=== PATIENT | female | born 1965 | race Caucasian/White ===

== ENCOUNTER 2021-05-21 10:21 | Outpatient (CLI) | payer OTHER, SELFPAY ==
--- NOTE | ~2021-05-21 | MM_ITS ---
EXAMINATION: MM screening cherelle BI w ermias HISTORY: Screening mammogram TECHNIQUE: Craniocaudal and mediolateral oblique 3-D tomosynthesis images were obtained and synthetic 2-D images were generated. CAD analysis was submitted and interpreted. COMPARISON: 12/16/2019 bilateral digital screening mammogram BREAST PARENCHYMAL COMPOSITION: There are scattered areas of fibroglandular density. FINDINGS: Focal microcalcifications are noted posteriorly in the mid inner right breast. Diagnostic r ight mammogram with magnification views is recommended. Otherwise there is no evidence of suspicious mass, calcification, or architectural distortion to sugg est malignancy in either breast. There has been no other suspicious interval change. IMPRESSION: 1. Microcalcifications in posterior mid inner right breast 2. Diagnostic right mammogram with magnification views is recommended BI-RADS Category 0: Incomplete: Needs additional imaging evaluation. Reviewed, dictated and finalized at location A.
== END 2021-05-21 10:22 | disposition home or self-care (01) ==
LOC: ANHIMG 10:24
PROVIDERS: Visit Provider Obstetrics & Gynecology
DX: Z12.31 Encounter for screening mammogram for malignant neoplasm of breast (principal); R92.8 Other abnormal and inconclusive findings on diagnostic imaging of breast
CPT/HCPCS: 77063; 77067

== ENCOUNTER 2021-06-18 12:43 | Outpatient (CLI) | payer OTHER, SELFPAY ==
--- NOTE | ~2021-06-18 | MM_ITS ---
EXAMINATION: MM diagnostic mammo unilat RT HISTORY: Follow-up right breast calcifications TECHNIQUE: Additional 3-D tomosynthesis images of the right breast were performed and synthetic 2-D i mages were generated. CAD analysis was submitted and interpreted. COMPARISON: 05/21/2021 BREAST PARENCHYMAL COMPOSITION: Breast composed of scattered areas of fibroglandular density. FINDINGS: There is a cluster of calcifications in the lower inner quadrant of the right breast which layer on the medial lateral view, consistent with benign milk of calcium. No suspicious calcification s, architectural distortion or masses identified to suggest malignancy. IMPRESSION: 1. Benign right breast calcifications. No evidence for malignancy. 2. Routine yearly screening mammogram and regular clinical breast examination are recommended. BI-RADS Category 2: Benign finding(s). Reviewed, dictated and finalized at location A. IMPRESSION: 1. Benign right breast calcifications. No evidence for malignancy. 2. Routine yearly screening mammogram and regular clinical breast examination a re recommended. BI-RADS Category 2: Benign finding(s).
== END 2021-06-18 12:44 | disposition home or self-care (01) ==
PROVIDERS: Visit Provider Obstetrics & Gynecology
DX: R92.0 Mammographic microcalcification found on diagnostic imaging of breast (principal)
CPT/HCPCS: 77065

== ENCOUNTER 2025-06-21 10:29 | Emergency (ER) | payer OTHER, SELFPAY ==
--- NOTE | ~2025-06-21 | XR_ITS ---
EXAM/ PROCEDURE: XR lumbar spine 2-3V - 06/21/2025 10:55 CDT HISTORY: 60 years old Female with fall 1 month ago lumbar pain COMPARISON: None available TECHNIQUE: Three view(s) FINDINGS/ IMPRESSION: There are no fractures or dislocations.Intervertebral disc spaces are within normal limits. Reviewed, dictated and finalized at location A.
--- NOTE | ~2025-06-21 | XR_ITS ---
EXAM/ PROCEDURE: XR sacrum coccyx min 2V - 06/21/2025 10:55 CDT HISTORY: 60 years old Female with fall 1 month ago, low back/sacral pain COMPARISON: None available TECHNIQUE: Two view(s) FINDINGS/ IMPRESSION: There are no fractures or dislocations.Joint spaces are within normal limits. Reviewed, dictated and finalized at location A.
--- OUTSIDE RECORDS SUMMARY | 2025-06-21 10:31 | XMS_ITS | Encounter Summary ---
Author Organization [facility] Address [address] [place] [address] Care Team Providers Care Guest Relations Executive Name Role Phone Wang Hurd MD Primary Care Provider [phone] Encounter Details Date Type Department Care Team (Latest Contact Info) Description 09/03/2002 Outpatient 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 Gender Identity Female 08/30/2024 8:22 AM CDT Sexual Orientation Not on file documented as of this encounter Plan of Treatment Upcoming Encounters Date Type Department Care Team (Late st Contact Info) Description 06/26/2025 9:45 AM CDT Initial consult [facility] - [address] - Ophthalmology [address] [facility] [address] [place] [address] Polina Larose MD [address] [facility] [address] [place] [address] 10/30/2025 10:00 AM FINGERNAIL SCULPTURER Office Visit [facility] Neurology [address] [facility] [address] [place] [address] Norma Hernandez FNP [address] [facility] [address] [place] [address] 05/01/2026 10:00 AM CDT Office Visit [facility] Neurology [address] [facility] [address] [place] [address] Ke Whalen MD [address] [facility] [address] [place] [address] documented as of this encounter Visit Diagnoses Diagnosis Other screening mammogram- Primary documented in this encounter Care Teams Guest Relations Executive Relationship Specialty Start Date End Date Wang Hurd MD [address] [place] [address] PCP - General Family Practice 12/27/16 documented as of this encounter
--- OUTSIDE RECORDS SUMMARY | 2025-06-21 10:31 | XMS_ITS | Clinical Summary ---
Author Organization [facility] Address [address] [place] [id number] Care Team Providers Care Iron Carrier Name Role Phone Wang Hurd MD Primary Care Provider Social History Tobacco Use Types Packs/Day Years Used Date Smoking Tobacco: Never Assessed Comments Unknown Sex and Gender Information Value Date Recorded Sex Assigned at Not on file Legal Sex Female 5:33 PM CDT Gender Identity Not on file Sexual Orientation Not on file Last Filed Vital Signs Vital Sign Reading Time Taken Comments Blood Pressure 119/79 06/01/2016 9:31 AM CDT Pulse 79 06/01/2016 9:31 AM CDT Temperature - - Respiratory Rate - - Oxygen Saturation - - Inhaled Oxygen Concentration - - Weight 65.8 kg (145 lb) 04/12/2016 9:07 AM CDT Height 165.1 cm (5' 5) 04/12/2016 9:07 AM CDT Body Mass Index 24.13 04/12/2016 9:07 AM CDT Plan of Treatment Health Maintenance Due Date Last Done Comments Cervical Cancer Screening Pa p Smear (Age 30 to 64) Every 3 Years 1963 Colorectal Cancer Screening Colonoscopy (10 Years) 1963 Annual Physical 1966 Hepatitis C 1981 DTaP, Tdap and Td Vaccines ( 1 - Tdap) 1982 Cervical Cancer Screening Pa p with HPV Testing (Age 30 to 64) Every 5 Years 1993 Cervical Cancer Screening with HPV 1993 Mammogram Screening 2003 Pneumococcal Vaccine: 50+ Ye ars (1 of 1 - PCV) 2013 Zoster Vaccines (1 of 2) 2013 COVID-19 Vaccine (2023-2 5 season) 2024 RSV Immunization or 60+ Years (1 - 1-dose 75+ series) 2038 Meningococcal B Vaccine Aged Out No l onger eligible based on patient's age to complete this topic Meningococcal Vaccine Aged Out No hakeem alexia eligible based on patient's age to complete this topic RSV Immunizations Under 20 Months Aged Out No longer eligible based on patient's age to complete this topic Care Teams Iron Carrier Relationship Specialty Start Date End Date Wang Hurd MD [address] [place], [place] [id number] PCP - General 06/07/13
--- OUTSIDE RECORDS SUMMARY | 2025-06-21 10:31 | XMS_ITS | Clinical Summary ---
Author Organization [facility] Address [address] [facility] [place] [address] Phone Care Team Providers Care Master Esthetician Name Role Phone Wang Hurd MD Primary Care Provider [phone] Allergies Active Allergy Reactions Criticality Noted Date Comments Clindamycin Nausea and Vomiting Low 12/27/2016 Cortisone Unknown 05/01/2021 Will interact with hormone replacement Vestibular migraine Vestibular migraine [id number] Active 2021-12-24 00:00:00 Medications spironolactone (ALDACTONE) 100 mg tablet Take 150 mg by mouth daily. Active levothyroxine 112 mcg tablet Take 112 mcg by mouth daily in the morning. Active liothyronine (CYTOMEL) 25 mcg Tablet Take 25 mcg by mouth daily. Active CHOLECALCIFERO L, VITAMIN D3, (VITAMIN D3 ORAL) Take by mouth. Activ e coenzyme Q10 (CO Q-10) 100 mg Capsule Take 100 mg by mouth daily. Active OTHER 12.5 mg Iodoral Supplement . Active OTHER 250 mg Dim Supplement . Active OTHER 900 mg 2 times daily NAC Supplement . Active OTHER L-Aginine/Lornithi ne 250/500 . Active OTHER Nifedipine ointment 0.2% Use a small amount topically to perianal area every 4 hours. Disp 35 grams RF 2. 35 Each 2 7 Active Additional Information Patient not taking.Reported on 04/30/2025 lidocaine (XYLOCAINE) 5 % Ointment Apply to affected area see administration instructions 1/2 inch topically to anal or affected area BID. 30 Gram 2 Active Additional Information Patient not taking.Reported on 04/30/2025 VITAMIN B COMPLEX ORAL Take 1 Capsule by mouth daily. 07/27/202 1 Active diclofenac sodium (VOLTAREN) 1 % gel Apply 4 Grams to affected area every third day. Active TURMERIC ORAL Take 1,000 mg by mouth every 12 hours. 1 Active Tretinoin 0.05 % Gel Apply to affected area every third day. 3 Active ascorbic acid, vitamin C, (Vitamin C) 500 mg tablet Take 500 mg by mouth daily. Active cyclobenzaprin e (FLEXERIL) 5 mg Tablet Take 5 mg by mouth 3 times daily as needed. Active fexofenadine (Lory Allergy) 180 mg tablet Take 180 mg by mouth daily. 1 Active eletriptan (RELPAX) 40 mg Tablet Take 40 mg by mouth one time as needed. 3 Active Zinc Sulfate, Bulk, 100 % Powder Take by mouth. 3 Active ondansetron (ZOFRAN ODT) 8 mg Tablet, Rapid Dissolve Take 8 mg by mouth every 8 hours as needed. 1 Active PROGESTERONE MICRONIZED ORAL Take by mouth. COMPOUNDED 150 Active prochlorperazi ne maleate (COMPAZINE) 10 mg tablet Take 10 mg by mouth. 2 Active MAGNESIUM ORAL Take by mouth. COGNIMAG - MAGNESIUM W/ L-THREONATE Active ondansetron (ZOFRAN ODT) 8 mg Tablet, Rapid Dissolve Dissolve 1 tablet on top of tongue then swallow with saliva every 8 hours as needed for nausea or vomiting 8 Tablet 3 5 Active prochlorperazi ne maleate (COMPAZINE) 10 mg tablet Take 1 Tablet (10 mg) by mouth every 6 hours as needed for Nausea/Emesis. 20 Tablet 3 5 Active Active Problems No known active problems Encounters Date Type Department Care Team Description 05/21/2025 External Device Data STL ABSTRACTION Provider, Abstract 04/30/2025 10:00 AM CDT Office Visit [facility] Neurology [address] [facility] [address] [place] [address] Ke Whalen MD Migraine without aura and without status migrainosus, not intractable (Primary Dx); Migraine with aura and without status migrainosus, not intractable 04/23/2025 External Device Data STL ABSTRACTION Provider, Abstract 04/18/2025 External Device Data STL ABSTRACTION Provider, Abstract 04/17/2025 External Device Data STL ABSTRACTION Provider, Abstract from Last 3 Months Social History Tobacco Use Types Packs/Day Years Used Date Smoking Tobacco: Never Comments No Sex and Gender Information Value Date Recorded Sex Assigned at Female 08/30/2024 8:22 AM CDT 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 Gender Identity Female 08/30/2024 8:22 AM CDT Sexual Orientation Not on file Last Filed Vital Signs Vital Sign Reading Time Taken Comments Blood Pressure 110/68 04/30/2025 9:51 AM CDT Pulse 76 04/30/2025 9:51 AM CDT Temperature - - Respiratory Rate - - Oxygen Saturation 98% 04/30/2025 9:51 AM CDT Inhaled Oxygen Concentration - - Weight 63 kg (139 lb) 04/30/2025 9:51 AM CDT Height 165.1 cm (5' 5) 04/30/2025 9:51 AM CDT Body Mass Index 23.13 04/30/2025 9:51 AM CDT Plan of Treatment Upcoming Encounters Date Type Department Care Team (Late st Contact Info) Description 06/26/2025 9:45 AM CDT Initial consult [facility] - [facility] - Ophthalmology [address] [facility] [address] [place] [address] Polina Larose MD [address] [facility] [address] [place] [address] 10/30/2025 10: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 Office Visit [facility] Neurology [address] [facility] [address] [place] [address] Norma Hernandez, AGUILA [address] [facility] [address] [place] [address] 05/01/2026 10:00 AM CDT Office Visit [facility] Neurology [address] [facility] [address] [place] [address] Ke Whalen MD [address] [place] [address] [place] [address] Health Maintenance Due Date Last Done Comments DTAP/TDAP/TD VACCINES (1 - Tdap) 1982 COLORECTAL SCREENING 2008 Colorectal Cancer Screening 2008 FIT-DNA Q 3 years 2008 FIT/FOBT Q 1 year 2008 Flex Sig/CT Colonography Q 5 years 2008 ZOSTER VACCINE (1 of 2) 2013 PAP SMEAR 04/22/2024 04/22/2021, 03/29, 03/28/2020 COVID-19 Vaccine (2023-2 5 season) 2024 03/03/2021, 02/10/2021 INFLUENZA VACCINE (#1) 2025 , 11/10/2021, 09/15/2020, Additional history exists BREAST CANCER SCREENING 03/08/2026 03/08/20 25, 02/15/2024, 02/15/2024, Additional history exists CERVICAL CANCER SCREENING 04/22/2026 HPV/Cotest (21-29) 04/22/2026 04/22/2021, 03/28/2020 HPV/Cotest (30-65) 04/22/2026 04/22/2021, 03/28/2020 RSV VACCINE (60+ or ) (1 - 1-dose 75+ series) 2038 Procedures Procedure Name Priority Date/Time Associated Diagnosis Comments MAMMO 3D DAVIN SCREEN BILAT W OR WO CAD Routine 03/08/2025 1:16 PM CDT Visit for screening mammogram CERV/VAG CYTO AGE BASED SCREEN PAP Routine 04/22/2021 3:22 PM CDT Smear, vaginal, as part of routine gynecological examination from Last 3 Months or Most Recently Relevant to Health Maintenance Results * MAMMO 3D DAVIN SCREEN BILAT W OR WO CAD (03/08/2025 1:16 PM CDT) Anatomical Region Laterality Modality Breast Bilateral Mammography 03/08/2025 1:16 PM CDT Impressions 03/08/2025 2:06 PM CDT IMPRESSION: 1. No concerning findings. OVERALL FINAL ASSESSMENT: BI-RADS CATEGORY 1 - Negative. RECOMMENDATIONS: 1. Recommend annual mammography. DICTATION LOCATION: [facility] 03/08/2025 2:06 PM CDT BILATERAL SCREENING DIGITAL MAMMOGRAM WITH 3D TOMOSYNTHESIS AND CAD DATE: 03/08/2025 1:16 PM HISTORY: Routine yearly screening exam. TECHNIQUE: Low-dose full-field digital breast tomosynthesis examination was performed of both breasts with 2D and 3D acquisitions. CAD was utilized. COMPARISON: November 2019 through January 2024 BREAST COMPOSITION: There are scattered areas of fibroglandular density. FINDINGS: No concerning dominant masses, suspicious calcifications, parenchymal asymmetries or areas of architectural distortion are identified in either breast. us Wang Hurd MD MAMMO ORDERABLES Final Resul t * CERV/VAG CYTO AGE BASED SCREEN PAP (04/22/2021 3:22 PM CDT) COMMENT (PAP): SEE COMMENT 2:02 PM CDT [facility] Comment: This order for age-based cervical cancer and STI screening follows ACOG guidelines(PB 168, 140, IXN708). See individual assays for performing site location. CLINICAL INFORMATION Information not provided 04/28/2021 2:02 PM CDT [facility] LAST MENSTRUAL PERIOD UNK 04/28/2021 2:02 PM CDT [facility] PREV PAP: INFORMATION NOT PROVIDED 04/28/2021 2:02 PM CDT [facility] PREV BX: INFORMATION NOT PROVIDED 04/28/2021 2:02 PM CDT [facility] SOURCE Endocervix 04/28/2021 2:02 PM CDT [facility] ADEQUACY: SEE COMMENT 04/28/2021 2:02 PM CDT [facility] Comment: Satisfactory for evaluation. Endocervical/transformation zone component absent. Age and/or menstrual status not provided PAP INTERP Negative for intraepithelial lesion or malignancy. 04/28/2021 2:02 PM CDT [facility] COMMENT This Pap test has been evaluated with computer assisted technology. 04/28/2021 2:02 PM CDT [facility] BRANCH MANAGER TRAINEE: SEE COMMENT 2020 2:02 PM CDT [facility] Comment: YQ, CT(ASCP) CT screening location: [place] [address] [address] [place] [address] EXPLANATORY NOTE SEE COMMENT 2:02 PM CDT [facility] Comment: EXPLANATORY NOTE: The Pap is a screening test for cervical cancer. It is not a diagnostic test and is subject to false negative and false positive results. It is most reliable when a satisfactory sample, regularly obtained, is submitted with relevant clinical findings and history, and when the Pap result is evaluated along with historic and current clinical information. HPV E6/E7 Not Detected Not Detected 04/28/2021 2:02 PM CDT [facility] Comment: Methodology: Transportation Security Officer-Mediated Amplification This assay detects E6/E7 viral messenger RNA (mRNA) from 14 high-risk HPV types (16,18,31,33,35,39,45,51,52,56,58,59,66,68). The analytical performance characteristics of this assay have been determined by [facility]. The modifications have not been cleared or approved by the FDA. This assay has been validated pursuant to the CLIA regulations and is used for clinical purposes. For additional information, please refer to http://education.My Point...Exactly.Inspirato/faq/GVY732l7 (This link if provided for information/ educational purposes only.) Genital SWAB OF ENDOCERVIX / Unknown Collection / Unknown 04/22/2021 3:22 PM CDT 04/22/2021 10:00 PM CDT Narrative [facility] - 04/28/2021 2:02 PM CDT Performing Organization Information: Site ID: [id number] [facility]: [facility] Address: [address] [place], [place] [address] Director: Kevin Gifford D.O., MPH Site ID: [id number] Name: [facility] Address: [address] [address] [address] Director: Liliana Alatorre us Raiza Cárdenas MD PATHOLOGY/CYTOLOGY ORDERABLE S Final Result [facility] [phone] from Last 3 Months or Most Recently Relevant to Health Maintenance Insurance [facility] Care Teams Master Esthetician Relationship Specialty Start Date End Date Wang Hurd MD [address] [place] [phone] PCP - General Family Practice 12/27/16
--- OUTSIDE RECORDS SUMMARY | 2025-06-21 10:31 | XMS_ITS ---
Author Organization [facility] Address [address] [place], [place] [id number] Care Team Providers Care Carpenter Cradle And Dolly Name Role Phone ERIC LÓPEZ Primary Care Provider UnavailMichael Patton Unavailable [phone] Kelsey Bravo Unavailable [phone] ALLERGIES Allergen (clinical drug ingredient) Drug/Non Drug Allergy documented on EMR Reaction Allergy Type Onset Date Status Cortizone injections (uncoded) vaginal bleeding, Cramping Allergy Active REASON FOR VISIT f/u MEDICATIONS Medication SIG (Take, Route, Frequency, Duration) Notes Start Date End Date Status DIM 200mg 1 cap as directed Ac tive L-Arginine 500 mg 1 cap(s) orally 2 ti mes a day Active NAC 600 mg 1 cap(s) orally once a day Active Tumeric orally Active cyclobenzaprine 5 mg 1 tab(s) orally nig htly as needed Active Berberine 500mg bid PRN Acti ve L-Ornithine Gooding Hydrochloride Active Cytomel 25 mcg 1 tab(s) orally once a day Active Synthroid 100 mcg (0.1 mg) 1 tab(s) oral ly once a day Active spironolactone 100 mg 1 tab(s) orally on ce a day Active Krill Oil 500 mg as directed A ctive Lory 24 Hour Allergy 180 mg 1 tab(s) orally once a day Active multivitamin Multiple Vitamins 1 cap(s) orally once a day Active Zinc orally Active Vitamin C 500 mg 1 tab(s) orally once a day Active Vitamin D3 5000 intl units as directed o rally once a day Active etodolac 300 mg 1 cap(s) orally 2 ti mes a day 12/06/2024 Active TraMADol Hydrochloride 50 mg 1 tab(s) or ally m47.22 2 times a day as needed 12/06/2024 Active VITAL SIGNS BMI 21.95 kg/m2 04/30/2025 Blood pressure systolic 111 mm Hg 04/30/20 25 Blood pressure diastolic 69 mm Hg 025 Heart Rate 80 /min 04/30/2025 Height 66 in 04/30/2025 Weight 136 lbs 04/30/2025 Encounters Encounter Location Date [facility] [address] [place], [place] [id number] 04/30/2025 Kelsey Bravo Primary generalized (osteo)arthritis M15.0 ; Pain in right hand M79.641 ; Pain in left hand M79.642 ; Other oil heaterman (current) drug therapy Z79.899 ; Cervicalgia M54.2 ; Meagan's thyroiditis E06.3 ; Dizziness R42 ; Nausea R11.0 and 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 Continue Voltaren gel, and turmeric for OA. Use it more for her hnad pain. Lab order given to evaluate disease process and to monitor any adverse effects of medications. 04/30/2025 Pain in right hand (ICD-10 - M79.641) Contineu Etodolac 300mg BID as needed for worsening right CMC pain. Continue Voltaren gel, and turmeric for OA. Use it more for her hnad pain. Lab order given to evaluate disease process and to monitor any adverse effects of medications. 04/30/2025 Pain in left hand (ICD-10 - M79.642) Contineu Etodolac 300mg BID as needed for worsening right CMC pain. Continue Voltaren gel, and turmeric for OA. Use it more for her hnad pain. Lab order given to evaluate disease process and to monitor any adverse effects of medications. 04/30/2025 Other oil heaterman (current) drug therapy (ICD-10 - Z79.899) Contineu Etodolac 300mg BID as needed for worsening right CMC pain. Continue Voltaren gel, and turmeric for OA. Use it more for her hnad pain. Lab order given to evaluate disease process and to monitor any adverse effects of medications. 04/30/2025 Cervicalgia (ICD-10 - M54.2) Contineu Etodolac 300mg BID as needed for worsening right CMC pain. Continue Voltaren gel, and turmeric for OA. Use it more for her hnad pain. Lab order given to evaluate disease process and to monitor any adverse effects of medications. 04/30/2025 Meagan's thyroiditis (ICD-10 - E06.3) Contineu Etodolac 300mg BID as needed for worsening right CMC pain. Continue Voltaren gel, and turmeric for OA. Use it more for her hnad pain. Lab order given to evaluate disease process and to monitor any adverse effects of medications. 04/30/2025 Dizziness (ICD-10 - R42) Contineu Etodolac 300mg BID as needed for worsening right CMC pain. Continue Voltaren gel, and turmeric for OA. Use it more for her hnad pain. Lab order given to evaluate disease process and to monitor any adverse effects of medications. 04/30/2025 Nausea (ICD-10 - R11.0) Contineu Etodolac 300mg BID as needed for worsening right CMC pain. Continue Voltaren gel, and turmeric for OA. Use it more for her hnad pain. Lab order given to evaluate disease process and to monitor any adverse effects of medications. 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 Continue Voltaren gel, and turmeric for OA. Use it more for her hnad pain. Lab order given to evaluate disease process and to monitor any adverse effects of medications. PLAN OF TREATMENT Medication Medication Name Sig Start Date Stop Date Notes DIM 200mg 1 cap as directed L-Arginine 500 mg 1 cap(s) orally 2 ti mes a day NAC 600 mg 1 cap(s) orally once a day Tumeric orally cyclobenzaprine 5 mg 1 tab(s) orally nig htly as needed Berberine 500mg bid PRN L-Ornithine Gooding Hydrochloride Cytomel 25 mcg 1 tab(s) orally once a day Synthroid 100 mcg (0.1 mg) 1 tab(s) orally once a day spironolactone 100 mg 1 tab(s) orally once a day Krill Oil 500 mg as directed Lory 24 Hour Allergy 180 mg 1 tab(s) orally once a day multivitamin Multiple Vitamins 1 cap(s) orally once a day Zinc orally Vitamin C 500 mg 1 tab(s) orally once a day Vitamin D3 5000 intl units as directed o rally once a day etodolac 300 mg 1 cap(s) orally 2 ti mes a day 12/06/2024 TraMADol Hydrochloride 50 mg 1 tab(s) or ally m47.22 2 times a day as needed 12/06/2024 Pending Test Test Name Order Date Uric Acid, Serum 04/30/2025 AST (SGOT) 04/30/2025 Creatinine, Serum 04/30/2025 ALT (SGPT) 04/30/2025 CBC With Differential/Platelet Sed Rate - Westergren 04/30/2025 Rheumatoid Arthritis Factor 04/30/2025 C-Reactive Protein, Quant 04/30/2025 CCP IgG Antibodies 04/30/2025 BESSIE Panel (BESSIE+JUANI+Scl 70+SjoSSA+SjoSSB) 04/30/2025 DS DNA ANTIBODY, CRITHIDIA, IFA W/REFL Q UEST 04/30/2025 Next Appt Details Follow Up: 6 Months, Reason: Provider Name:Kelseyrodrigo Bravo, 10/30/2025 11:10:00 AM, [address] [facility] [address], [place], [place], [id number], Progress Notes * Examination Category Sub-Category Detail Notes Category Not es General Constitutional: No acute distress , No ac mack distress HEENT: PERRLA, Neck supple, Normal sclerae and conjunctivae , PERRLA, Neck supple, Normal sclerae and conjunctivae Cardiovascular RSR, No murmurs, No rub, Normal peripheral pulsations, No edema , RSR, No murmurs, No rub, Normal peripheral pulsations, No edema Lungs: clear to ausculation , clear to ausculation Abdomen: soft, no organomegal y or masses , soft, no organomegaly or masses /Rectal: not done , not done Skin: No cutaneous lesions . No subcutaneous nodules noted in the 4 extremities , No cutaneous lesions. No subcutaneous nodules noted in the 4 extremities Neurological: No focal neurologica l findings , No focal neurological findings Heme/Lymphatic: No cervical, axillar y, or inguinal adenopathy , No cervical, axillary, or inguinal adenopathy Psych: Alert, oriented x 3, Normal affect , Alert, oriented x 3, Normal affect Musculoskeletal: Normal strength. No muscle atrophy , Normal strength. No muscle atrophy Joint Exam Shoulders right, 1+ swelling , right, 1+ swelling Elbows No swelling. No tend erness. NROM., No instability or deformity. , No swelling. No tenderness. NROM., No instability or deformity. Wrists No swelling. No tend erness. NROM., No instability or deformity. , No swelling. No tenderness. NROM., No instability or deformity. MCP1 bilateral, 1+ tender ness , bilateral, 1+ tenderness Hips No tenderness, NROM. , No instability or deformity. , No tenderness, NROM., No instability or deformity. Knees No swelling, no tend erness, NROM., No instability or deformity. , No swelling, no tenderness, NROM., No instability or deformity. Ankles No swelling, no tend erness, NROM., No instability or deformity. , No swelling, no tenderness, NROM., No instability or deformity. All IPs No swelling, no tend erness, NROM, no deformity unless noted below. , No swelling, no tenderness, NROM, no deformity unless noted below. All MCPs No swelling, no tend erness, no deformity unless noted below. , No swelling, no tenderness, no deformity unless noted below. All PIPs No swelling, no tend erness, no deformity unless noted below. , No swelling, no tenderness, no deformity unless noted below. All DIPs No swelling, no tend erness, no deformity unless noted below. , No swelling, no tenderness, no deformity unless noted below. All MTPs No swelling, no tend erness, NROM, no deformity unless noted below. , No swelling, no tenderness, NROM, no deformity unless noted below. History and Physical Notes * HPI (History of Present Illness) Category Sub-Category Detail Notes Category Not es Rheumatology Joint swelling She has been going to PT for her hands. She took Etodolac instead and it helped. SHe only takes it as needed. She has not been on it since March. She denies any side effects. Meloxicam caused nausea and tinnitus. She has been doing ok without it. She has been having worsening pain in her right CMC joint. She has bony changes in her right CMC. Turmeric is helping some. morning stiffness myalgias muscle weakness rash Psoriasis IBS NSAID's on meloxicam daily , on meloxicam daily Physical Examination Category Sub-Category Detail Notes Section Note s MDHAQ Summary Function (0-10):: 0.7 Pain (0-10):: 6.5 Patient Global Assessment of Disease Activity (0 -10):: 6.5 RAPID3 Score (0-30):: 13.7 Physician Global Assessment of Disease Activity (0-10):: 3 Prognosis Very Good w/tx Erosive Damage No
--- OUTSIDE RECORDS SUMMARY | 2025-06-21 10:31 | XMS_ITS | Encounter Summary ---
Author Organization [facility] Address [address] [place] [address] Care Team Providers Care Case Consultant Name Role Phone Wang Hurd MD Primary Care Provider [phone] Encounter Details Date Type Department Care Team (Latest Contact Info) Description 06/27/2006 Outpatient Historical [facility] Lobo Oseguera MD [address] [facility] [address] [place] [address] Other Screening Mammogram (Primary Dx) Social History Tobacco Use Types Packs/Day Years Used Date Smoking Tobacco: Never Assessed Comments Unknown Sex and Gender Information Value Date Recorded Sex Assigned at Female 08/30/2024 8:22 AM CDT Legal Sex Female 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 Gender Identity Female 08/30/2024 8:22 AM CDT Sexual Orientation Not on file documented as of this encounter Plan of Treatment Upcoming Encounters Date Type Department Care Team (Late st Contact Info) Description 06/26/2025 9:45 AM CDT Initial consult [facility] - Ophthalmology [address] [facility] [address] [place] [address] Polina Larose MD [address] [facility] [address] [place] [address] 10/30/2025 10:00 AM OVAL OR CIRCULAR GLASS CUTTER Office Visit [facility] [id number] [facility] [address] [place] [address] Norma Hernandez FNP [address] [facility] [address] [place] [address] 05/01/2026 10:00 AM CDT Office Visit [facility] [address] [facility] [address] [place] [address] Ke Whalen MD [address] [facility] [address] [place] [address] documented as of this encounter Visit Diagnoses Diagnosis Other screening mammogram- Primary documented in this encounter Care Teams Case Consultant Relationship Specialty Start Date End Date Wang Hurd MD [address] [place] [phone] PCP - General Family Practice 12/27/16 documented as of this encounter
--- OUTSIDE RECORDS SUMMARY | 2025-06-21 10:32 | XMS_ITS | Encounter Summary ---
Author Organization [facility] Address [address] [place] [address] Care Team Providers Care Boots And Shoes Supervisor Name Role Phone Wang Hurd MD Primary Care Provider Encounter Details Date Type Department Care Team (Late st Contact Info) Description 04/24/2025 Lab Requisition [facility] - [facility]ermPath Lab [address] [facility] [place] [address] Yaquelin Estes DO [address] [facility] [address] [place] [address] Social History Tobacco Use Types Packs/Day Years Used Date Smoking Tobacco: Never Assessed Comments Unknown Sex and Gender Information Value Date Recorded Sex Assigned at Female 09/23/2021 7:12 AM CDT Legal Sex Female 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 Gender Identity Female 09/23/2021 7:12 AM CDT Sexual Orientation Straight 09/23/2021 7: 12 AM CDT documented as of this encounter Plan of Treatment Not on file documented as of this encounter Procedures Procedure Name Priority Date/Time Associated Diagnosis Comments DERMATOPATHOLOGY Routine 04/24/2025 12:3 2 PM CDT documented in this encounter Results * DERMATOPATHOLOGY (04/24/2025 12:32 PM CDT) Case Report Dermatopathology Report Case: [id number] Authorizing Provider: Yaquelin Estes DO Collected: 04/24/2025 12:32 PM Ordering Location: [facility] - Received: 04/25/2025 07:03 AM DermPath Lab Pathologist: Sobeida Green MD Specimen: Skin, right lat lower ext 12:37 PM CDT DERMATOPATHOLOGY LABORATORY Final Diagnosis Specimen A. 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 The specimen consists of a shave biopsy measuring 7x6x2 mm. Jar 0. 12:37 PM CDT DERMATOPATHOLOGY LABORATORY Microscopic Description Specimen A. SKIN, right lat lower ext: The epidermis shows parakeratosis, full thickness disorderly maturation of keratinocytes, mitoses at different levels, and dyskeratotic cells. 12:37 PM CDT DERMATOPATHOLOGY LABORATORY Disclaimer An external and internal positive and negative controls are appropriate for the histochemical, immunohistochemical and immunofluorescence stain(s) in this case (if any), except where stated explicitly. The performance characteristics of the stain(s) cited in this report were developed and its performance characteristic determined by the Dermatopathology Laboratory at [facility], directed by Dr. Andressa Castro. These tests need not be, and therefore are not, approved by the [place] Food and Drug Administration. The tests are used for clinical purposes. Billing Codes Specimen Charges Stain Charges 23809 1 12:37 PM CDT DERMATOPATHOLOGY LABORATORY Embedded Images 12:37 PM CDT DERMATOPATHOLOGY LABORATORY Pathology/Cytolo gy TISSUE SPECIMEN FROM SKIN / Unknown 04/24/2025 12:32 PM CDT 04/25/2025 7:03 AM CDT us Yaquelin Estes DO LAB - PATHOLOGY/CYTOLOGY ORDERABLES Final Result DERMATOPATHOLOGY LABORATORY [facility] - Department of Dermatology [address], [address] [phone] documented in this encounter Visit Diagnoses Not on filedocumented in this encounter Care Teams Boots And Shoes Supervisor Relationship Specialty Start Date End Date Wang Hurd MD PCP - General 02/05/10 documented as of this encounter
--- OUTSIDE RECORDS SUMMARY | 2025-06-21 10:32 | XMS_ITS | Referral Summary ---
Author Organization [address] Address [address] [place] [id number] Care Team Providers Care Technical Recruiter Name Role Phone Wang Hurd MD Primary Care Provid er Carolina Ward DO Unavailable [phone] Allergies Active Allergy Reactions Criticality Noted Date Comments Clindamycin Nausea & Vomiting Low 12/27/2016 Cortisone Unknown 05/01/2021 Will interact with hormone replacement Medications fexofenadine (BOBO) 180 mg tablet 1 tablet (180 mg total) daily Active SYNTHROID 100 mcg tablet 09/12/20 19 Active liothyronine (CYTOMEL) 25 mcg tablet Take 1 tablet (25 mcg total) by mouth daily 4 06/28/20 19 Active polyethylene glycol (MIRALAX) 17 gram packet Take 1 packet (17 g total) by mouth daily Active spironolactone (ALDACTONE) 100 mg tablet 09/12/20 19 Active ARGININE HCL, L-ARGININE, ORAL 500 mg daily Active meloxicam (MOBIC) 15 mg tablet 05/06/20 20 Active cyclobenzaprine (FLEXERIL) 5 mg tablet 0.5 tablets (2.5 mg total) 04/08/20 21 Active acetylcysteine (NAC ORAL) Take by mouth Activ e KRILL OIL ORAL Take by mouth A ctive vitamin B complex capsule Take 1 capsule by mouth daily Active zinc sulfate (ZINC-15 ORAL) Take by mouth A ctive IODINE ORAL Take by mouth Acti ve TURMERIC ORAL Take 1,000 mg by mouth 2 (two) times a day Active MULTIVITAMIN ORAL Take by mouth Active tretinoin (RETIN-A) 0.05 % cream 09/15/20 21 Active testosterone, bulk, powder 0 06/04/20 22 Active cholecalciferol (VITAMIN D-3) 5,000 unit tablet Take by mouth Active ascorbic acid (VITAMIN C) 500 mg tablet,chewable 1 tablet/chew tab (500 mg total) Active MAGNESIUM ORALIndications:hy pomagnesemia 300 mg Active coenzyme Q10 200 mg capsule Take 1 capsule (200 mg total) by mouth daily Active A LIPOIC [id number] INE ORAL every 12 hours Activ e phendimetrazine tartrate 105 mg capsule, extended release 3 10/11/20 22 Active NOT IN DATABASE, PRESCRIPTION, Drug name: progesterone Dose: 150 mg Route: oral Frequency: once daily Duration: Active Qulipta 60 mg tablet TAKE 60 MG BY MOUTH DAILY 30 tablet 11 11/24/20 22 Active Additional Information Patient not taking.Reported on 11/07/2024 eletriptan (RELPAX) 40 mg tabletIndications: Migraine Take 1 tablet (40 mg total) by mouth once as needed for migraine for up to 1 dose May repeat one time after 2 hours if needed. 9 tablet 11 10/04/20 23 Active ondansetron ODT (ZOFRAN-ODT) 8 mg disintegrating tablet Take 1 tablet (8 mg total) by mouth every 8 (eight) hours as needed for nausea or vomiting 30 tablet 2 10/04/20 23 Active omeprazole (PriLOSEC) 40 mg capsule TAKE 1 CAPSULE BY MOUTH ONCE DAILY BEFORE BREAKFAST FOR 90 DAYS Active tretinoin (ALTRALIN) 0.05 % gel APPLY A SMALL AMOUNT TO AFFECTED AREA OF FACE AT BEDTIME 11/02/20 23 Active prochlorperazine (COMPAZINE) 10 mg tablet Take 1 tablet (10 mg total) by mouth 3 (three) times a day as needed for nausea 30 tablet 3 01/03/20 24 Active Additional Information Patient not taking.Reported on 11/07/2024 Active Problems Problem Noted Date Diagnosed Date Vestibular migraine 12/24/2021 Dizziness and giddiness 05/01/2021 Chronic right shoulder pain 05/02/2020 Immunizations Immunization Administration Dates Next Due Influenza, Quadrivalent, Anita l Culture-based MDCK, Preservative Free, Antibiotic Free, Intramuscular 11/09/2022,11/10/2021,09/15/2020 Influenza, Quadrivalent, Spl it, Intramuscular 12/17/2013 Influenza, Quadrivalent, Spl it, Preservative Free, Intramuscular 09/27/2018 Influenza, Unspecified 10/26/2023(Deferr ed: Patient Refused),11/19/2022(Deferred: Patient Refused),11/10/2021(Deferred: Patient Refused) Pfizer SARS-CoV-2 Monovalent Vaccination (12+ Yrs) PURPLE 03/03/2021,02/10/2021 Social History Tobacco Use Types Packs/Day Years Used Date Smoking Tobacco: Former Smokeless Tobacco: Never Alcohol Use Standard Drinks/Week Comments Yes 0 (1 standard drink = 0.6 oz pur e alcohol) PHQ-2 Answer Date Recorded PHQ-2 Total Score 0 06/29/2023 Comments No Sex and Gender Information Value Date Recorded Sex Assigned at Not on file Legal Sex Female 11:36 PM CRAP GAME BOX PERSON Gender Identity Not on file Sexual Orientation Not on file Occupation Industry Job Start Date Job End Date Retired Not on file Not on file Not on file Last Filed Vital Signs Vital Sign Reading Time Taken Comments Blood Pressure 105/61 11/07/2024 10:50 AM CRAP GAME BOX PERSON Pulse 69 12/21/2023 8:40 AM CRAP GAME BOX PERSON Temperature 36.7 C (98.1 F) 12/21/2023 8:40 AM CRAP GAME BOX PERSON Respiratory Rate 16 12/21/2023 8:40 AM CRAP GAME BOX PERSON Oxygen Saturation 97% 12/21/2023 8:40 AM CRAP GAME BOX PERSON Inhaled Oxygen Concentration - - Weight 62.4 kg (137 lb 9.6 oz) 11/07/2024 10:50 AM CRAP GAME BOX PERSON Height 165.1 cm (5' 5) 11/07/2024 10:50 AM CRAP GAME BOX PERSON Body Mass Index 22.9 11/07/2024 10:50 AM CRAP GAME BOX PERSON Plan of Treatment Not on file Procedures Procedure Name Priority Date/Time Associated Diagnosis Comments THINPREP IMAGING PAP AND HPV MRNA E6/E7 REFLEX HPV 16,18/45 Routine 11/07/2024 12:27 PM CRAP GAME BOX PERSON Encounter for well woman exam HM COLONOSCOPY Routine 07/15/2023 SCREENING MAMMOGRAM Schedule Routine, Read Routine (OP Routine) 06/18/2021 from Last 3 Months or Most Recently Relevant to Health Maintenance Results * ThinPrep(R) Imaging Pap and HPV mRNA E6/E7 Reflex HPV 16,18/45 (11/07/2024 12:27 PM CRAP GAME BOX PERSON) CLINICAL INFORMATION: [facility] Comment:None given LMP [facility] Comment:None given Previous Pap [facility] Comment:None given Prev. Bx [facility] Comment:None given SOURCE: [facility] Comment:None given Pap, specimen adequacy [facility] Comment: Satisfactory for evaluation. Endocervical/transformation zone component absent. HPV interp [facility] Comment: Cytology Results: Negative for intraepithelial lesion or malignancy. COMMENTS [facility] Comment: This Pap test has been evaluated with computer assisted technology. Central Office Mechanic [facility] Comment: YQ, CT(ASCP) CT screening location: [place] [address] [place] [address] Comment [facility] Comment: EXPLANATORY NOTE: The Pap is a screening test for cervical cancer. It is not a diagnostic test and is subject to false negative and false positive results. It is most reliable when a satisfactory sample, regularly obtained, is submitted with relevant clinical findings and history, and when the Pap result is evaluated along with historic and current clinical information. Human papillomavirus RNA, High Risk E6/E7 Not Detected Not Detected [facility] [employer] [facility] Comment: Methodology: Hypnotherapist-Mediated Amplification This assay detects E6/E7 viral messenger RNA (mRNA) from 14 high-risk HPV types (16,18,31,33,35,39,45,51,52,56,58,59,66,68). Cervical sources are required for HPV testing. If a vaginal source from a patient who has had a total hysterectomy with removal of cervix was submitted, please contact the testing laboratory for alternative testing options. For additional information, please refer to http://education.Shopular/faq/YYQ433m1 (This link if provided for information/ educational purposes only.) Swab 11/07/2024 12:2 7 PM CRAP GAME BOX PERSON 11/08/2024 4:51 AM CRAP GAME BOX PERSON Zayda Canales NP LAB CYTOLOGY ORDERABLES Final [facility] [address] [place] [address] [facility] [address] [address] [address] * COLONOSCOPY (07/15/2023) Scribed Colonoscopy Normal Historical Provider HEALTH MAINTENANCE Final Result * Screening Mammogram (06/18/2021) Anatomical Region Laterality Modality Breast N/A Mammography Historical Provider IMG MAMMO PROCEDURES Alice l Result from Last 3 Months or Most Recently Relevant to Health Maintenance Insurance [employer] OPEN ACCESS [employer] OPEN ACCESS HEALTHLINK OPEN ACCESS HEALTHLINK OPEN ACCESS Care Teams Technical Recruiter Relationship Specialty Start Date End Date Wang Hurd MD [address] [place], [place] [address] PCP - General 07/14/17 [place] [address] [place] [address] Consulting Physician Obstetrics and Gynecology 11/02/23
--- OUTSIDE RECORDS SUMMARY | 2025-06-21 10:32 | XMS_ITS | Clinical Summary ---
Author Organization [facility] [employer] Address [address] [place] [address] Care Team Providers Care Tile And Marble Setter Name Role Phone Wang Hurd MD Primary Care Provider [phone] Source Comments [facility] [employer],non-owned Affiliates and Associated Physician Practices is amultiple site organization consisting of ambulatory clinics and hospital sitesin [place], [place], [place] and [place]. This disclosure is being madepursuant to the Care Everywhere program and may not contain all information available regarding this patient. Last updated 18.[facility] [employer] Allergies Active Allergy Reactions Criticality Noted Date Comments Clindamycin Nausea and/or Vomiting Low 12/27/2016 Cortisone Unknown 05/01/2021 Will interact with hormone replacement Medications * Be aware that medications may not be up to date on this document. Alwaysverify current medications with the patient. spironolactone (Aldactone) 100 MG tablet Take 1 (one) tablet by mouth once daily Active levothyroxine (Synthroid) 100 MCG tablet Take 1 (one) tablet by mouth once daily Active liothyronine (Cytomel) 25 MCG tablet Take 1 (one) tablet by mouth once daily Active Phendimetrazine Tartrate 105 MG 2 Active prochlorperazin e (Compazine) 10 MG tablet Take 1 (one) tablet by mouth 3 times daily as needed 3 Active ondansetron, disintegrating, (Zofran ODT) 8 MG tablet Take 1 (one) tablet by mouth every 8 hours as needed 3 Active Atogepant (Qulipta) 60 MG TABS Take 1 (one) tablet by mouth once daily 2 Active fexofenadine (Lory) 180 MG tablet 1 (one) tablet once daily Active eletriptan (Relpax) 40 MG tablet Take 1 (one) tablet by mouth 3 Active ubiquinine/kenton min-e (Coenzyme Q10) 200 MG capsule Take 200 mg by mouth once daily Active Cholecalciferol 125 MCG (5000 UT) Active B Complex Vitamins CAPS Take 1 capsule by mouth once daily Active polyethylene glycol 3350 (Miralax) 17 g packet Take 17 (seventeen) g by mouth once daily Active ZINC SULFATE PO Acti ve TURMERIC PO Take 1,000 mg by mouth 2 times daily Active IBUPROFEN PO Active IODINE, KELP, PO Active omeprazole (PriLOSEC) 40 MG capsuleIndicati ons:Pain of upper abdomen Take 1 (one) capsule by mouth daily before breakfast for 90 days 90 capsule 4 Active Encounters Date Type Department Care Team Description 04/24/2025 Lab Requisition [facility] - DermPath Lab [address] [place] [address] Yaquelin Estes DO from Last 3 Months Social History Tobacco Use Types Packs/Day Years Used Date Smoking Tobacco: Never Assessed Comments Unknown Sex and Gender Information Value Date Recorded Sex Assigned at Female 09/23/2021 7:12 AM CDT Legal Sex Female 6:18 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 Gender Identity Female 09/23/2021 7:12 AM CDT Sexual Orientation Straight 09/23/2021 7: 12 AM CDT Last Filed Vital Signs Vital Sign Reading Time Taken Comments Blood Pressure 132/79 07/21/2023 11:08 AM CDT Pulse 74 07/21/2023 11:08 AM CDT Temperature - - Respiratory Rate - - Oxygen Saturation - - Inhaled Oxygen Concentration - - Weight 59.9 kg (132 lb) 07/21/2023 11:08 AM CDT Height 165.1 cm (5' 5) 07/21/2023 11:08 AM CDT Body Mass Index 21.97 07/21/2023 11:08 AM CDT Plan of Treatment Health Maintenance Due Date Last Done Comments DIANE (AGES 45-75) - COL ON CA SCREENING 1963 COLON MONITORING 1963 COLONOSCOPY - COLON CA SCREENING 1963 CT COLONOGRAPHY - COLON CA SCREENING 1963 Colorectal Cancer Screening 1963 FIT - COLON CA SCREENING 1963 FLEX SIG - COLON CA SCREENING 1963 LIPID TESTING 1963 HIV SCREENING 1978 HEPATITIS C SCREENING 04/04/1981 DTAP/TDAP/TD VACCINES (1 - Tdap) 1982 PAP SMEAR 1984 PNEUMOCOCCAL VACCINE 50+ (1 of 1 - PCV) 2013 ZOSTER VACCINE (1 of 2) 2013 COVID-19 VACCINE (3 - 2023-2 5 season) 2024 03/03/2021, 02/10/2021 DEPRESSION SCREENING 11/28/2024 MAMMOGRAM 02/11/2025 02/11/2023 INFLUENZA VACCINE (#1) 2025 , 09/27/2018, 12/17/2013 Respiratory Syncytial Virus (RSV) Vaccine Pt: or over 60 yrs (1 - 1-dose 75+ series) 2038 HEPATITIS B VACCINE Aged Out No longe r eligible based on patient's age to complete this topic HIB VACCINE Aged Out No longer eligi ble based on patient's age to complete this topic HPV VACCINE Aged Out No longer eligi ble based on patient's age to complete this topic MENINGOCOCCAL (Group B) VACCINE SHARED DECISION-MAKING Aged Out No longer eligible based on patient's age to complete this topic MENINGOCOCCAL GROUPS A/C/Y/W VACCINE Aged Out No longer eligible b ased on patient's age to complete this topic Procedures Procedure Name Priority Date/Time Associated Diagnosis Comments DERMATOPATHOLOGY Routine 04/24/2025 12:3 2 PM CDT from Last 3 Months Results * DERMATOPATHOLOGY (04/24/2025 12:32 PM CDT) Case Report Dermatopathology Report Case: [id number] Authorizing Provider: Yaquelin Estes DO Collected: 04/24/2025 12:32 PM Ordering Location: [facility] - Received: 04/25/2025 07:03 AM [...] characteristic determined by the Dermatopathology Laboratory at [facility], directed by Dr. Andressa Castro. These tests need not be, and therefore are not, approved by the [place] Food and Drug Administration. The tests are used for clinical purposes. Billing Codes Specimen Charges Stain Charges 27754 1 12:37 PM CDT DERMATOPATHOLOGY LABORATORY Embedded Images 12:37 PM CDT DERMATOPATHOLOGY LABORATORY Pathology/Cytolo gy TISSUE SPECIMEN FROM SKIN / Unknown 04/24/2025 12:32 PM CDT 04/25/2025 7:03 AM CDT us Yaquelin Estes DO LAB - PATHOLOGY/CYTOLOGY ORDERABLES Final Result DERMATOPATHOLOGY LABORATORY [facility] - Department of Dermatology [address] [place] [address], [facility] [phone] from Last 3 Months Insurance HEALTHLINK HEALTHLINK HEALTHLINK Care Teams Tile And Marble Setter Relationship Specialty Start Date End Date Wang Hurd MD PCP - General 02/05/10
--- OUTSIDE RECORDS SUMMARY | 2025-06-21 10:32 | XMS_ITS | Patient Health Record ---
Author Organization [facility] Address [address] [facility] [address] [place], [place] [id number] Care Team Providers Care Library Clerk Name Role Phone ERIC LÓPEZ Primary Care Provider UnavailMichael Patton Unavailable [phone] Kelsey Bravo Unavailable [phone] ALLERGIES Allergen (clinical drug ingredient) Drug/Non Drug Allergy documented on EMR Reaction Allergy Type Onset Date Status Cortizone injections (uncoded) vaginal bleeding, Cramping Allergy Active RESULTS Component Value Reference Range Notes CREATININE Reviewed date:01/04/2025 08:30:15 AM Interpretation: Performing Lab:[facility] STRINGER01Singh [id number] Liliana Alatorre MD Notes/Report: NON-FASTING; NON-FASTING; NON-FASTING; NON-FASTING; NON-FAST CREATININE 0.67 0.50-1.05 mg/dL EGFR 99 > OR = 60 mL/min/1.73m2 AST Reviewed date:01/04/2025 08:30:15 AM Interpretation: Performing Lab:Miguel STRINGER [id number] Liliana Alatorre MD Notes/Report: NON-FASTING; NON-FASTING; NON-FASTING; NON-FASTING; NON-FAST AST 20 10-35 U/L ALT Reviewed date:01/04/2025 08:30:15 AM Interpretation: Performing Lab:Miguel STRINGER [id number] Liliana Alatorre MD Notes/Report: NON-FASTING; NON-FASTING; NON-FASTING; NON-FASTING; NON-FAST ALT 21 6-29 U/L SED RATE BY MODIFIED WESTERG KAYODE Reviewed date:01/04/2025 08:30:15 AM Interpretation: Performing Lab:Miguel STRINGERexa[address] Singh [id number] Liliana Alatorre MD Notes/Report: NON-FASTING; NON-FASTING; NON-FASTING; NON-FASTING; NON-FAST SED RATE BY MODIFIED ASIAERGREN 2 < OR = 30 mm/h CBC (INCLUDES DIFF/PLT) Reviewed date:01/04/2025 08:30:15 AM Interpretation: Performing Lab:Miguel STRINGERa101[address] Singh [id number] Liliana Alatorre MD Notes/Report: NON-FASTING; NON-FASTING; NON-FASTING; NON-FASTING; NON-FAST WHITE BLOOD CELL COUNT 6.9 3.8-10.8 Thousand/ uL RED BLOOD CELL COUNT 4.44 3.80-5.10 Million/uL HEMOGLOBIN 14.3 11.7-15.5 g/dL HEMATOCRIT 42.2 35.0-45.0 % MCV 95.0 80.0-100.0 fL MCH 32.2 27.0-33.0 pg MCHC 33.9 32.0-36.0 g/dL For adults, a slight decrease in the calculated MCHC value (in the range of 30 to 32 g/dL) is most likely not clinically significant; however, it should be interpreted with caution in correlation with other red cell parameters and the patient's clinical condition. RDW 12.6 11.0-15.0 % PLATELET COUNT 305 140-400 Thousand/uL MPV 10.6 7.5-12.5 fL ABSOLUTE NEUTROPHILS 4540 7079-5072 cells/uL ABSOLUTE LYMPHOCYTES 5872 547-7711 cells/uL ABSOLUTE MONOCYTES 531 200-950 cells/uL ABSOLUTE EOSINOPHILS 110 15-500 cells/uL ABSOLUTE BASOPHILS 83 0-200 cells/uL NEUTROPHILS 65.8 LYMPHOCYTES 23.7 MONOCYTES 7.7 EOSINOPHILS 1.6 BASOPHILS 1.2 C-REACTIVE PROTEIN Reviewed date:01/04/2025 08:30:15 AM Interpretation: Performing Lab:Miguel [id number] Leary [id number] Liliana Alatorre MD Notes/Report: NON-FASTING; NON-FASTING; NON-FASTING; NON-FASTING; NON-FAST C-REACTIVE PROTEIN <3.0 <8.0 mg/L CYCLIC CITRULLINATED PEPTIDE (CCP) AB (IGG) Reviewed date:01/04/2025 08:30:15 AM Interpretation: Performing Lab:Miguel STRINGERa[address] Singh [id number] Liliana Alatorre MD Notes/Report: NON-FASTING; NON-FASTING; NON-FASTING; NON-FASTING; NON-FAST CYCLIC CITRULLINATED PEPTIDE (CCP) AB (IGG) <16 Reference Range Negative: <20 Weak Positive: 20-39 Moderate Positive: 40-59 Strong Positive: >59 RHEUMATOID FACTOR Reviewed date:01/04/2025 08:30:15 AM Interpretation: Performing Lab:[facility]iguel STRINGERexa[address] [id number] Liliana Alatorre MD Notes/Report: NON-FASTING; NON-FASTING; NON-FASTING; NON-FASTING; NON-FAST RHEUMATOID FACTOR <10 <14 IU/mL REASON FOR REFERRAL No Information MEDICATIONS Medication SIG (Take, Route, Frequency, Duration) Notes Start Date End Date Status Krill Oil 500 mg as directed A ctive DIM 200mg 1 cap as directed Ac tive Lory 24 Hour Allergy 180 mg 1 tab(s) orally once a day Active multivitamin Multiple Vitamins 1 cap(s) orally once a day Active L-Arginine 500 mg 1 cap(s) orally 2 ti mes a day Active Zinc orally Active NAC 600 mg 1 cap(s) orally once a day Active Berberine 500mg bid PRN Acti ve L-Ornithine Pickaway Hydrochloride Active Cytomel 25 mcg 1 tab(s) orally once a day Active Vitamin D3 5000 intl units as directed o rally once a day Active Tumeric orally Active Vitamin C 500 mg 1 tab(s) orally once a day Active cyclobenzaprine 5 mg 1 tab(s) orally nig htly as needed Active etodolac 300 mg 1 cap(s) orally 2 ti mes a day 12/06/2024 Active Synthroid 100 mcg (0.1 mg) 1 tab(s) oral ly once a day Active TraMADol Hydrochloride 50 mg 1 tab(s) or ally m47.22 2 times a day as needed 12/06/2024 Active spironolactone 100 mg 1 tab(s) orally on ce a day Active PROBLEMS Problem Type ICD Code Onset Dates Problem Status W/U Status Risk SNOMED Code Notes Problem Primary generalized (osteo)arthritis (M15.0) Active confirmed 972768986 Problem Other intermediate accountant (current) drug therapy (Z79.899) Active confirmed 055715629 Problem Meagan's thyroiditis (E06.3) Active confirmed 99391083 Problem Osteoarthritis of spine with radiculopathy, cervical region (M47.22) Active confirmed 772964405 Problem Lung nodule (R91.1) Active confirmed 886225731 Problem Cervicalgia (M54.2) Active confirmed Cervicalgia (80273415) 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 VITAL SIGNS Heart Rate 80 /min 04/30/2025 Blood pressure diastolic 69 mm Hg 04/30/2025 Height 66 in 04/30/2025 Blood pressure systolic 111 mm Hg 04/30/2025 Weight 136 lbs 04/30/2025 BMI 21.95 kg/m2 04/30/2025 PROCEDURES Procedure Date Ordered Date Performed Result Body Sit e PT Evaluate and treat 12/06/2024 N/A PT Evaluate and treat 09/02/2024 N/A Encounters Encounter Location Date Provider Diagnosis [facility] [address] [place] [address], [address] [id number] 12/06/2024 Kelsey Bravo Primary generalized (osteo)arthritis M15.0 ; Pain in right hand M79.641 ; Pain in left hand M79.642 ; Other alf (current) drug therapy Z79.899 ; Cervicalgia M54.2 ; Meagan's thyroiditis E06.3 ; Dizziness R42 ; Nausea R11.0 and Xerophthalmus E50.7 [facility] [address] [place] [address], [address] [place], [place] [id number] 04/04/2025 Kelsey Bravo [facility] [address] [place] [address], [facility] [address] [place], [place] [id number] 04/30/2025 Kelsey Bravo Primary generalized (osteo)arthritis M15.0 ; Pain in right hand M79.641 ; Pain in left hand M79.642 ; Other intermediate accountant (current) drug therapy Z79.899 ; Cervicalgia M54.2 ; Meagan's thyroiditis E06.3 ; Dizziness R42 ; Nausea R11.0 and Xerophthalmus E50.7 [facility] [address], [address] [id number] 09/02/2024 Akgun Miguelina Osteoarthritis of sp ine with radiculopathy, cervical region M47.22 [facility] [address] [facility], [address] [id number] 09/12/2024 Aksri Mcintyre Lung nodule R91.1 [facility] [address] [facility], [address] [id number] 09/13/2024 Aksri Miguelina [facility] [address] [facility], [address] [id number] 09/18/2024 Aksri Miguelina [facility] [address] [facility], [address] [id number] 09/20/2024 Aksri Miguelina [facility] [address] [facility], [address] [id number] 10/04/2024 Aksri Miguelina [facility] [address] [facility], [address] [id number] 12/06/2024 Aksri Miguelina [facility] [address] [facility], [address] [id number] 09/20/2024 Aksri Miguelina [facility] [address] [facility], [address] [id number] 09/20/2024 Aksri Miguelina [facility] [address] [facility], [address] [id number] 02/26/2025 Aksri Miguelina [facility] [address] [facility], [address] [id number] 02/26/2025 Aksri Miguelina [facility] [address] [facility], [address] [id number] 02/27/2025 Michael Mcintyre [facility] [address] [facility], [facility] [address] [place], [place] [id number] 02/27/2025 Michael Mcintyre [facility] [address] [facility], [facility] [address] [place], [place] [id number] 03/28/2025 Michael Mcintyre ASSESSMENTS Encounter Date Diagnosis Assessment Notes Treatment Notes Treatment Clinical Notes Section Notes 12/06/2024 Primary generalized (osteo)arthritis (ICD-10 - M15.0) Stop Meloxicam as needed and try Etodolac 300mg BID for worsening right CMC pain. CAn continue Voltaren gel, and turmeric for OA. Recent labs done. Waiting for results. Hand PT order given. Lab order given to evaluate disease process and to monitor any adverse effects of medications. 12/06/2024 Pain in right hand (ICD-10 - M79.641) Stop Meloxicam as needed and try Etodolac 300mg BID for worsening right CMC pain. CAn continue Voltaren gel, and turmeric for OA. Recent labs done. Waiting for results. Hand PT order given. Lab order given to evaluate disease process and to monitor any adverse effects of medications. 04/30/2025 Primary generalized (osteo)arthritis (ICD-10 - M15.0) [...] to monitor any adverse effects of medications. 12/06/2024 Pain in left hand (ICD-10 - M79.642) Stop Meloxicam as needed and try Etodolac 300mg BID for worsening right CMC pain. CAn continue Voltaren gel, and turmeric for OA. Recent labs done. Waiting for results. Hand PT order given. Lab order given to evaluate disease process and to monitor any adverse effects of medications. 04/30/2025 Pain in left hand (ICD-10 - M79.642) Contineu Etodolac 300mg BID as needed for worsening right CMC pain. Continue Voltaren gel, and turmeric for OA. Use it more for her hnad pain. Lab order given to evaluate disease process and to monitor any adverse effects of medications. 09/02/2024 Osteoarthritis of spine with radiculopathy, cervical region (ICD-10 - M47.22) 09/12/2024 Lung nodule (ICD-10 - R91.1) 12/06/2024 Other alf (current) drug therapy (ICD-10 - Z79.899) Stop Meloxicam as needed and try Etodolac 300mg BID for worsening right CMC pain. CAn continue Voltaren gel, and turmeric for OA. Recent labs done. Waiting for results. Hand PT order given. Lab order given to evaluate disease process and to monitor any adverse effects of medications. 04/30/2025 Other intermediate accountant (current) drug therapy (ICD-10 - Z79.899) Contineu Etodolac 300mg BID as needed for worsening right CMC pain. Continue Voltaren gel, and turmeric for OA. Use it more for her hnad pain. Lab order given to evaluate disease process and to monitor any adverse effects of medications. 12/06/2024 Cervicalgia (ICD-10 - M54.2) Stop Meloxicam as needed and try Etodolac 300mg BID for worsening right CMC pain. CAn continue Voltaren gel, and turmeric for OA. Recent labs done. Waiting for results. Hand PT order given. Lab order given to evaluate disease process and to monitor any adverse effects of medications. 04/30/2025 Cervicalgia (ICD-10 - M54.2) Contineu Etodolac 300mg BID as needed for worsening right CMC pain. Continue Voltaren gel, and turmeric for OA. Use it more for her hnad pain. Lab order given to evaluate disease process and to monitor any adverse effects of medications. 12/06/2024 Meagan's thyroiditis (ICD-10 - E06.3) Stop Meloxicam as needed and try Etodolac 300mg BID for worsening right CMC pain. CAn continue Voltaren gel, and turmeric for OA. Recent labs done. Waiting for results. Hand PT order given. Lab order given to evaluate disease process and to monitor any adverse effects of medications. 04/30/2025 Meagan's thyroiditis (ICD-10 - E06.3) Contineu Etodolac 300mg BID as needed for worsening right CMC pain. Continue Voltaren gel, and turmeric for OA. Use it more for her hnad pain. Lab order given to evaluate disease process and to monitor any adverse effects of medications. 12/06/2024 Dizziness (ICD-10 - R42) Stop Meloxicam as needed and try Etodolac 300mg BID for worsening right CMC pain. CAn continue Voltaren gel, and turmeric for OA. Recent labs done. Waiting for results. Hand PT order given. Lab order given to evaluate disease process and to monitor any adverse effects of medications. 04/30/2025 Dizziness (ICD-10 - R42) Contineu Etodolac 300mg BID as needed for worsening right CMC pain. Continue Voltaren gel, and turmeric for OA. Use it more for her hnad pain. Lab order given to evaluate disease process and to monitor any adverse effects of medications. 12/06/2024 Nausea (ICD-10 - R11.0) Stop Meloxicam as needed and try Etodolac 300mg BID for worsening right CMC pain. CAn continue Voltaren gel, and turmeric for OA. Recent labs done. Waiting for results. Hand PT order given. Lab order given to evaluate disease process and to monitor any adverse effects of medications. 04/30/2025 Nausea (ICD-10 - R11.0) Contineu Etodolac 300mg BID as needed for worsening right CMC pain. Continue Voltaren gel, and turmeric for OA. Use it more for her hnad pain. Lab order given to evaluate disease process and to monitor any adverse effects of medications. 12/06/2024 Xerophthalmus (ICD-10 - E50.7) Stop Meloxicam as needed and try Etodolac 300mg BID for worsening right CMC pain. CAn continue Voltaren gel, and turmeric for OA. Recent labs done. Waiting for results. Hand PT order given. Lab order given to evaluate disease process and to monitor any adverse effects of medications. 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 Continue Voltaren gel, and turmeric for OA. Use it more for her hnad pain. Lab order given to evaluate disease process and to monitor any adverse effects of medications. PLAN OF TREATMENT Pending Test Test Name Order Date CT Scan : Chest 09/12/2024 Uric Acid, Serum 04/30/2025 AST (SGOT) 07/02/2021 AST (SGOT) 03/03/2022 AST (SGOT) 10/11/2022 AST (SGOT) 12/06/2024 AST (SGOT) 04/30/2025 AST (SGOT) 12/26/2020 Creatinine, Serum 07/02/2021 Creatinine, Serum 03/03/2022 Creatinine, Serum 10/11/2022 Creatinine, Serum 12/06/2024 Creatinine, Serum 04/30/2025 Creatinine, Serum 12/26/2020 ALT (SGPT) 07/02/2021 ALT (SGPT) 03/03/2022 ALT (SGPT) 10/11/2022 ALT (SGPT) 12/06/2024 ALT (SGPT) 04/30/2025 ALT (SGPT) 12/26/2020 T4 Free 07/02/2021 TSH 07/02/2021 CBC With Differential/Platelet 1 CBC With Differential/Platelet 1 CBC With Differential/Platelet 2 CBC With Differential/Platelet 2 CBC With Differential/Platelet 5 CBC With Differential/Platelet 5 Sed Rate - Westergren 10/11/2022 Sed Rate - Westergren 12/06/2024 Sed Rate - Westergren 04/30/2025 Sed Rate - Westergren 07/02/2021 Sed Rate - Westergren 12/26/2020 Sed Rate - Westergren 03/03/2022 Rheumatoid Arthritis Factor 10/11/2022 Rheumatoid Arthritis Factor 12/06/2024 Rheumatoid Arthritis Factor 04/30/2025 Rheumatoid Arthritis Factor 12/26/2020 C-Reactive Protein, Quant 12/06/2024 C-Reactive Protein, Quant 04/30/2025 CCP IgG Antibodies 10/11/2022 CCP IgG Antibodies 12/06/2024 CCP IgG Antibodies 04/30/2025 CCP IgG Antibodies 12/26/2020 BESSIE Panel (BESSIE+JUANI+Scl 70+SjoSSA+SjoSSB) 07/02/2021 BESSIE Panel (BESSIE+JUANI+Scl 70+SjoSSA+SjoSSB) 09/29/2023 BESSIE Panel (BESSIE+JUANI+Scl 70+SjoSSA+SjoSSB) 04/30/2025 T3, FREE 07/02/2021 X ray : Hand left- outside order 020 X ray : Hand left- outside order 024 X ray : Hand right- outside order 2023 X ray : Hand right- outside order 2019 X ray : Spines, cervical- outside order 05/29/2024 Lab slip given 03/03/2022 Lab slip given 10/11/2022 Lab slip given 12/06/2024 Lab slip given 07/02/2021 Lab slip given 12/26/2020 -Xray slip given 05/29/2024 PT Evaluate and treat 05/29/2024 PT Evaluate and treat 09/02/2024 PT Evaluate and treat 12/06/2024 DS DNA ANTIBODY, CRITHIDIA, IFA W/REFL Q UEST 04/30/2025 DS DNA ANTIBODY, CRITHIDIA, IFA W/REFL Q UEST 07/02/2021 Next Appt Details Provider Name:Kelsey Bravo, 10/30/2025 11:10:00 AM, [address] [facility], [address], [place], [place], [id number], Insurance Providers Payer Name Payer Address Payer Phone Subscriber Number Group Number Insured Name Patient Relationship to Insured Coverage Start Date Coverage End Date [employer] [address] [place] [address] [phone] [id number] Francisoc Nino Self - patient is the insured 3 MEDICAL (GENERAL) HISTORY Medical History History ICD Code thyroid disease chicken pox Surgical History Surgery Date(Month/Year)
--- OUTSIDE RECORDS SUMMARY | 2025-06-21 10:32 | XMS_ITS ---
Author Organization [facility] Address [address] [place], [place] [phone] Care Team Providers Care Cement Sprayer Helper Name Role Phone ERIC LÓPEZ Primary Care Provider Michael Meehan Unavailable [phone] REASON FOR VISIT Cancel Appointment Request Encounters Encounter Location Date Provider Diagnosis [facility] [address], [address] [place], [place] [phone] 03/28/2025 Michael Mcintyre PLAN OF TREATMENT Next Appt Details Provider Name:Kelsey Bravo, 10/30/2025 11:10:00 AM, [address], [address], [place], [place], [phone],
--- OUTSIDE RECORDS SUMMARY | 2025-06-21 10:32 | XMS_ITS ---
Author Organization [facility] Address [address] [place], [place] [phone] Care Team Providers Care Partner Marketing Manager Name Role Phone ERIC LÓPEZ Primary Care Provider UnavailMichael Patton Unavailable [phone] Kelsey Bravo Unavailable [phone] REASON FOR VISIT 4 mo f/u Encounters Encounter Location Date Provider Diagnosis [facility] [address], [address] [place], [place] [phone] 04/04/2025 Kelsey Bravo PLAN OF TREATMENT Next Appt Details Provider Name:Kelsey Bravo, 10/30/2025 11:10:00 AM, [address], [address], [place], [place], [phone],
--- OUTSIDE RECORDS SUMMARY | 2025-06-21 10:32 | XMS_ITS | Clinical Summary ---
Author Organization [address] Address [address] [place] [id number] Care Team Providers Care County Court Judge Name Role Phone Wang Hurd MD Primary Care Provid er Carolina Ward DO Unavailable [phone] Allergies Active Allergy Reactions Criticality Noted Date [...] total) by mouth daily Active A LIPOIC [id number] INE ORAL every 12 hours Activ e [...] SARS-CoV-2 Monovalent Vaccination (12+ Yrs) PURPLE 03/03/2021,02/10/2021 Surgical History Surgery Date Site/Laterality Comments ENDOMETRIAL ABLATION 11/28/2007 - 11/27/2008 PELVIC LAPAROSCOPY Medical History Medical History Date Comments Thyroid disease Allergic rhinitis Dizziness Tinnitus Vestibular migraine Family History Medical History Relation Name Comments Cancer Father Arthritis Mother Heart disease Mother Breast cancer Neg Hx Ovarian cancer Neg Hx Relation Name Status Comments Father Mother Social History Tobacco Use Types Packs/Day Years Used Date Smoking Tobacco: Former Smokeless Tobacco: Never Alcohol Use Standard Drinks/Week Comments Yes 0 (1 standard drink = 0.6 oz pur e alcohol) PHQ-2 Answer Date Recorded PHQ-2 Total Score 0 06/29/2023 Comments No Sex and Gender Information Value Date Recorded Sex Assigned at Not on file Legal Sex Female 11:36 PM TICKET COUNTER Gender Identity Not on file Sexual Orientation Not on file Occupation Industry Job Start Date Job End Date Retired Not on file Not on file Not on file Obstetrics History Para Term AB IAB SAB Ectopic Multiple Livin g Live Births 0 0 0 0 0 0 0 0 0 0 0 Last Filed Vital Signs Vital Sign Reading Time Taken Comments Blood Pressure 105/61 11/07/2024 10:50 AM TICKET COUNTER Pulse 69 12/21/2023 8:40 AM TICKET COUNTER Temperature 36.7 C (98.1 F) 12/21/2023 8:40 AM TICKET COUNTER Respiratory Rate 16 12/21/2023 8:40 AM TICKET COUNTER Oxygen Saturation 97% 12/21/2023 8:40 AM TICKET COUNTER Inhaled Oxygen Concentration - - Weight 62.4 kg (137 lb 9.6 oz) 11/07/2024 10:50 AM TICKET COUNTER Height 165.1 cm (5' 5) 11/07/2024 10:50 AM TICKET COUNTER Body Mass Index 22.9 11/07/2024 10:50 AM TICKET COUNTER Plan of Treatment Health Maintenance Due Date Last Done Comments Hepatitis C Screening 1965 DTaP/Tdap/Td Vaccine (1 - Tdap) 1974 Hepatitis B Screening 1981 Zoster Vaccine (1 of 2) 2013 Depression Screening 06/29/2024 06/29/2023, 06/23/20 Covid-19 Vaccine ( season) 2024 11/16/2021, 03/03/2021, 02/10/2021 Breast Cancer Screening-Mammogram 02/14/2025 02/15/2024, 02/15/2024, 02/11/2023, Additional history exists Influenza Vaccine (#1) 2025 , 11/10/2021, 09/15/2020, Additional history exists Cervical Cancer Screening 11/07/20252023, 11/02/2023, 10/29/2022, Additional history exists Regular Well Visit/Exam 18-64 11/07/2025 11/07/2024, 11/02/2023, 10/29/2022 Colon Cancer Screening-Colonoscopy 07/15/2033 07/15/2023 Colon Cancer Screening-CT Colonography Discontinued 07/15/2023 Colon Cancer Screening-DNA Stool Discontinued 07/15/2023 Colon Cancer Screening-FIT Discontinued 07/15/2023 Colon Cancer Screening-Sigmoidoscopy Discontinued 07/15/2023 Pneumococcal vaccine <65 Aged Out No longer eligible based on patient's age to complete this topic Procedures Procedure Name Priority Date/Time Associated Diagnosis Comments THINPREP IMAGING PAP AND HPV MRNA E6/E7 REFLEX HPV 16,18/45 Routine 11/07/2024 12:27 PM TICKET COUNTER Encounter for well woman exam COLONOSCOPY Routine 07/15/2023 SCREENING MAMMOGRAM Schedule Routine, Read Routine (OP Routine) 06/18/2021 from Last 3 Months or Most Recently Relevant to Health Maintenance Results * ThinPrep(R) Imaging Pap and HPV mRNA E6/E7 Reflex HPV 16,18/45 (11/07/2024 12:27 PM TICKET COUNTER) CLINICAL INFORMATION: [facility] Comment:None given LMP [facility] Comment:None given Previous Pap [facility] Comment:None given Prev. Bx [facility] Comment:None given SOURCE: [facility] Comment:None given Pap, specimen adequacy [facility] Comment: Satisfactory for evaluation. Endocervical/transformation zone component absent. HPV interp [facility] Comment: Cytology Results: Negative for intraepithelial lesion or malignancy. COMMENTS [facility] Comment: This Pap test has been evaluated with computer assisted technology. Communication Consultant [facility] Comment: YQ, CT(ASCP) CT screening location: [place] [address] [address] [id number] Comment [facility] [employer] [facility] Comment: EXPLANATORY NOTE: The Pap is a [...] High Risk E6/E7 Not Detected Not Detected [facility] Comment: Methodology: Graphic Pre Press Trades Worker-Mediated Amplification This assay detects E6/E7 viral messenger RNA (mRNA) from 14 high-risk HPV types (16,18,31,33,35,39,45,51,52,56,58,59,66,68). Cervical sources are required for HPV testing. If a vaginal source from a patient who has had a total hysterectomy with removal of cervix was submitted, please contact the testing laboratory for alternative testing options. For additional information, please refer to http://education.RareCyte.Invacio/faq/DWL034b3 (This link if provided for information/ educational purposes only.) Swab 11/07/2024 12:2 7 PM TICKET COUNTER 11/08/2024 4:51 AM TICKET COUNTER Zayda Canales NP LAB CYTOLOGY ORDERABLES Final Result [facility] [address] [address] [id number] Decision [facility] [address] [place] [address] * COLONOSCOPY (07/15/2023) Scribed Colonoscopy Normal us Historical Provider HEALTH MAINTENANCE Final Result * Screening Mammogram (06/18/2021) Anatomical Region Laterality Modality Breast N/A Mammography us Historical Provider IMG MAMMO PROCEDURES Alice l Result from Last 3 Months or Most Recently Relevant to Health Maintenance Insurance [employer] OPEN ACCESS [employer] OPEN ACCESS [employer] OPEN ACCESS [employer] OPEN ACCESS Care Teams County Court Judge Relationship Specialty Start Date End Date Wang Hurd MD [facility] [address] [place] [address] PCP - General 07/14/17 [place] [address] [place] [address] Consulting Physician Obstetrics and Gynecology 11/02/23
[2025-06-21 10:41] VITALS: BP 113/77; PULSE 82; RESP 18; TEMP 36.4; O2SAT 99
--- NOTE | 2025-06-21 11:00 | ED_ITS ---
HPI - Back Pain/Injury General Chief Complaint: Back Pain/Injury Stated Complaint: fall/ back pain Source: patient and RN notes reviewed Mode of arrival: ambulatory Limitations: no limitations History of Present Illness HPI Narrative: 60-year-old female presents Express Care complaining of low back injury approximately 1 month ago. Patient was walking down steps at a friend's house outside when the steps were loose and she fell and landed on her buttocks. Patient denies any in her head, loss of consciousness, neck pain, or any other injuries. Patient reports having low back pain and upper buttocks pain. She reports having muscle spasm with certain movements of her back. Patient has been trying [id number] therapy, massage, ice, stretching, low back exercises with pain persisting. Patient denies any numbness or tingling, saddle anesthesia, loss of bowel or bladder function, or leg weakness. Related Data Home Medications ?Medication ?Instructions ?Recorded ?Confirmed ?Last Taken ?Type etodolac 300 mg capsule mg 06/21/25 Unknown History levothyroxine 112 mcg tablet mcg 06/21/25 Unknown History (Synthroid) liothyronine 25 mcg tablet mcg 06/21/25 Unknown History phendimetrazine tartrate 105 mg mg PO 06/21/25 Unknown History capsule,extended release spironolactone 100 mg tablet mg 06/21/25 Unknown History tretinoin 0.05 % topical gel topical 06/21/25 Unknown History Allergies Allergy/AdvReac Type Severity Reaction Status Date / Time No Known Allergies Allergy Verified 06/21/25 10:34 Review of Systems Review of Systems: CONSTITUTIONAL: Denies fever, chills, or sweats. EYES: Denies visual changes, redness, or discharge. ENT: Denies rhinorrhea, congestion, sore throat, or otalgia. CARDIOVASCULAR: Denies chest pain, palpitations, dizziness, lightheadedness, or edema. RESPIRATORY: Denies cough or dyspnea. GASTROINTESTINAL: Denies abdominal pain, nausea, vomiting, or diarrhea. GENITOURINARY: Denies dysuria or hematuria. SKIN: Denies rash or itching. MUSCULOSKELETAL: Positive for back pain. Negative for neck pain, joint pain, or myalgia. NEUROLOGIC: Denies headache, numbness, loss of consciousness, saddle anesthesia, focal weakness, loss of bowel or bladder function, or weakness. PSYCHIATRIC: Denies anxiety or depression. All other systems reviewed are negative, except as documented in HPI. PMFSH Comments At the time of my signature, I reviewed and agree with the nursing past medical, surgical, social, and family history. There is no relevant family history pertinent to the patient complaint. Exam Narrative: GENERAL: This is a well-nourished, well-developed adult, in no apparent distress. They are non ill-appearing, nontoxic appearing. HEAD: normocephalic, atraumatic. EYES: Sclera clear/white. Conjunctiva normal. Vision is grossly intact. Extraocular movements intact. Pupils PERRLA EARS: External ears normal, Hearing grossly intact. NOSE: External nose normal THROAT: Mucous membranes moist, NECK: Neck supple, non-tender without lymphadenopathy, masses or thyromegaly. No cervical point tenderness, crepitus, or step-offs, no midline tenderness. CARDIOVASCULAR: Regular rate and rhythm RESPIRATORY: Respiratory rate normal, respiratory effort nonlabored, no res piratory distress SKIN: warm, Dry, intact with no suspicious lesions or rash, good texture and turgor. NEURO: awake, alert, and oriented to person, place and time. There were no obvious focal neurologic abnormalities. EXTREMITIES: No joint tenderness, effusion, or edema noted. BACK: No thoracic or lumbar point tenderness. , no crepitus or step-offs. Tender to palpate throughout the lumbar due to the upper bilateral buttocks. Muscle spasms elicited with movement of lower back. No CVA tenderness. Course Course Emergency Course: Portions of this record may have been created with voice recognition software Level of Care: Express Care Visit Vital Signs Vital signs: Vital Signs Temperature 97.6 F 06/21/25 10:41 Pulse Rate 82 06/21/25 10:41 Respiratory Rate 18 06/21/25 10:41 Blood Pressure 113/77 06/21/25 10:41 Pulse Oximetry 99 06/21/25 10:41 Oxygen Delivery Room Air 06/21/25 10:41 Temperature 97.6 F 06/21/25 10:41 Pulse Rate 82 06/21/25 10:41 Respiratory Rate 18 06/21/25 10:41 Blood Pressure 113/77 06/21/25 10:41 Pulse Oximetry 99 06/21/25 10:41 Oxygen Delivery Room Air 06/21/25 10:41 Reviewed MDM - Back Pain/Injury MDM Narrative Medical decision making narrative: X-ray of lumbar back and sacrum shows. Discussed physical exam findings. Advised supportive measures and signs/symptoms to go to the ER. Pt is appropriate for outpt treatment and f/u. Differential Diagnosis Differential diagnosis: Likely lumbar radiculopathy, sciatica, strain of lumbar region, discitis and other (Sacral fracture, coccyx fracture, compression fracture) Critical Care Time Critical Care Time Critical Care Time: No Discharge Plan Discharge Clinical Impression: Injury of lower back Qualifiers: Encounter type: initial encounter Qualified Code(s): S39.92XA - Unspecified injury of lower back, initial encounter Fall Qualifiers: Encounter type: initial encounter Qualified Code(s): W19.XXXA - Unspecified fall, initial encounter Patient Disposition: Home Condition: Stable Instructions: Acute Low Back Pain (ED), Lower Back Exercises (ED) Additional Instructions: The x-ray of your lumbar spine and sacrum/coccyx this was negative for any fractures or acute findings. Take your prescribed muscle relaxer as directed. Do not drive or operate heavy machine, or work while taking the medication as it can make you drowsy. Use the lidocaine patches as needed for pain. Follow instructions on the packaging You may take Tylenol or ibuprofen as needed for pain, fall instructions on the bottle. Please follow-up with your primary care provider 3-5 days. Rest. Avoid pushing, pulling, lifting --running or excessive walking-- or anything that worsens the symptoms You may try stretching your lower back, low back exercises as tolerated, or doing spinal decompression to help with symptoms. Go to the emergency department if you develop any numbness or tingling to your groin, weakness in your legs, or any loss of bowel or bladder function. Patient Language: Ethiopian Prescriptions: No Action etodolac 300 mg capsule liothyronine 25 mcg tablet spironolactone 100 mg tablet phendimetrazine tartrate 105 mg capsule, extended release PO levothyroxine [Synthroid] 112 mcg tablet tretinoin 0.05 % gel TOPICAL Follow-up/Referrals: PHYSICIAN,PROVIDER RELATIONS SPECIALIST [Primary Care Provider] - Time of Disposition: 11:35
== END 2025-06-21 11:38 | disposition home or self-care (01) ==
PROVIDERS: Referring Provider Emergency Medicine
DX: S39.92XA Unspecified injury of lower back, initial encounter (principal); W10.9XXA Fall (on) (from) unspecified stairs and steps, initial encounter; E06.9 Thyroiditis, unspecified; F41.9 Anxiety disorder, unspecified
CPT/HCPCS: 72100; 72220; 99203; G0463